=== PATIENT | male | born 1955 | race Hispanic/Latino ===

== ENCOUNTER → 2018-01-28 | Day surgery (SDC) | payer SELFPAY ==
[~2018-01-28] MED LIST: FENTANYL CITRATE/PF 100MCG/2 ML INJ ONE; LISINOPRIL10 MG PO; MIDAZOLAM HCL 2 MG/2 ML VIAL ONE; OR PHACO EYE KIT ONE; PREOP PHACO EYE KIT ONE
== END | disposition home or self-care (01) ==
LOC: OR 11:17
PROVIDERS: ATTEND Ophthalmology
DX: H25.11 Age-related nuclear cataract, right eye (principal); I10 Essential (primary) hypertension
CPT/HCPCS: 66984; J2250

== ENCOUNTER → 2018-04-01 | Day surgery (SDC) | payer BC | END | disposition home or self-care (01) | LOC: OR 10:54 | PROVIDERS: ATTEND Ophthalmology | DX: H25.12 Age-related nuclear cataract, left eye (principal); I10 Essential (primary) hypertension; I45.10 Unspecified right bundle-branch block; Z01.810 Encounter for preprocedural cardiovascular examination | CPT/HCPCS: 66984; 93005; J2250; V2632 ==